=== PATIENT | female | born 1930 | race Caucasian/White ===

== ENCOUNTER 2018-04-20 15:58 | Inpatient (IN) ==
[2018-04-20] MEDS ORDERED: Naloxone 0.4 MG/ML INJ IVP PRN (18:41)
[2018-04-20] MEDS ORDERED: D5% in Water 1,000 ML IVC PRN (18:46)
[2018-04-20] MEDS ORDERED: Dextrose Gel 15 GM/37.5 ML TUBE PO PRN ×2 (18:46)
[2018-04-20] MEDS ORDERED: *HR* Dextrose 50 % in Water (Syg) 50 ML SYRINGE IVP PRN (18:46)
--- NOTE | 2018-04-20 18:55 | Internal Med History&Physical ---
Date of Encounter: 04/20/18 Time of Encounter: 18:10 Internal Medicine - H&P: HPI Chief complaint: Right neck swelling Admitted From: Home Plans for Post Hospital Care: Home History of present illness: Ms. Lima is a 87 year old female present to the emergency room of [facility] with right-sided neck swelling with tenderness and the skin redness. Past medical history is significant for diabetes, hypertension, arthritis on chronic 5 mg prednisone daily. Patient found right-sided neck swelling with pain. Patient has pain on swallowing. Denies difficult breathing. No drooling. Patient has right-sided neck skin redness spread to upper chest wall. Patient denies fever or chills. No nausea. Patient denies recent teeth infection or dental procedure. In [facility] emergency room, CT neck has been done with contrast, which shows inflammatory changes involving the right submandibular gland, no abscess. Patient was treated with Unasyn and transferred to our hospital for further management. Patient feels pain and the swelling has improved after treatment. Past Med Surg Social Fam HX - Past Medical History Medical history: arthritis, diabetes, hypertension - Past Surgical History Surgical History: cholecystectomy - Social History Smoking Status: Never smoker Alcohol use: none Drug use: none - Family History Mother History Unknown: Yes All Systems PM: A 10-system review of systems was performed and is negative for pertinent findings except as documented above in the HPI. - Constitutional Exam: Pt is AAO x 3, in NAD HEENT: NC/AT, PERRL Neck: Right submandibular swelling with tenderness. Skin redness spread to right neck and upper chest wall. Lungs: CTA b/l Heart: S1S2, RRR Abd: Soft, nontender, BS present Ext: ROM wnl, no pedal edema Neuro: No focal deficit - Assessment and plan (1) Submandibular gland infection Current Visit: Yes Status: Acute Assessment and plan: Patient has right-sided submadibular inflammation with leukocytosis (WBC 22.7K in [facility]), consider infection. No abscess identified by the CT scan - Continue IV Unasyn - Not meet sepsis criteria - Continue close monitoring to prevent airway obstruction. Keep patient in 2 N. continuous cardiac and pulse oximetry monitoring. - Keep nothing by mouth overnight, IV fluid for hydration. Reevaluate in a.m. (2) Diabetes mellitus Current Visit: Yes Status: Acute Assessment and plan: Place patient on insulin sliding scale coverage Qualifiers: Diabetes mellitus type: type 2 Diabetes mellitus ad terminal makeup operator insulin use: without ad terminal makeup operator use Diabetes mellitus complication status: without complication Qualified Code(s): E11.9 - Type 2 diabetes mellitus without complications (3) Hypertension Current Visit: Yes Status: Acute Assessment and plan: Hydralazine IV as needed. Resume home medication after diet resumed Qualifiers: Hypertension type: essential hypertension Qualified Code(s): I10 - Essential (primary) hypertension (4) Arthritis Current Visit: Yes Status: Acute (5) Chronic steroid use Current Visit: Yes Status: Acute Assessment and plan: Patient uses 5 mg prednisone daily for arthritis for about 6 months. Will give patient stress dose hydrocortisone IV to prevent adrenal crisis. (6) DVT prophylaxis Current Visit: Yes Status: Acute Assessment and plan: Subcutaneous heparin - Time Spent With Patient Total time spent is greater than 50% in coordination of care (as documented) at patient's floor/unit and/or counseling patient: 40 minutes Greater than 35 minutes
[2018-04-20] MEDS: Hydrocortisone Sodium Succ 100 MG/2 ML VIAL IVP SCH (19:39)
[2018-04-20 21:37] LABS: Basophils # 0.1 K/mcL (0.0-0.2); Basophils % 0.3 %; Eosinophils % 0.2 %; Hematocrit 38.5 % (35.3-44.9); Hemoglobin 13.4 g/dL (11.5-15.4); Immature Granulocytes % 0.6 % (0-4); Lymphocytes # 3.4 K/mcL (0.6-4.6); Lymphocytes % 14.4 %; Mean Corpuscular HGB Conc 34.8 g/dL (31.6-35.5); Mean Corpuscular Hemoglobin 31.5 pg (28.0-33.3); Mean Corpuscular Volume 90.6 fL (83.0-100.0); Mean Platelet Volume 10.4 fL (9.4-12.4); Monocytes # 1.3 K/mcL (0.0-1.3); Monocytes % 5.6 %; Neutrophils # 18.4 K/mcL (1.6-8.9); Platelet Count 312 K/mcL (140-400); Red Blood Count 4.25 M/mcL (3.82-4.97); Red Cell Distribution Width 12.8 % (11.5-14.5); Segmented Neutrophils % 78.9 %
[2018-04-20 21:51] LABS: BUN/Creatinine Ratio 15 (6-26); Blood Urea Nitrogen 9 mg/dL (8-23); Calcium 9.8 mg/dL (8.6-10.3); Carbon Dioxide 26 mEq/L (23-29); Chloride 92 mEq/L (98-107); Glucose 133 mg/dL (70-105); Osmolality,Calculated 277 (280-300); Potassium 2.6 mEq/L (3.5-5.1); Sodium 133 mEq/L (136-145); eGFR For Non-African Americans > 60 (> 60)
[2018-04-20] MEDS: 0.9 % Sodium Chloride 1,000 ML IVC SCH (21:53)
[2018-04-20] MEDS ORDERED: Potassium Chloride 20 MEQ, Lidocaine 1% 2 ML in D5% in Water 250 ML IVPB ONE (23:37)
[2018-04-20] MEDS: Ampicillin/Sulbactam 3,000 MG in 0.9 % Sodium Chloride Mini Bag 100 ML IVPB SCH (23:54)
[2018-04-21] MEDS ORDERED: *HR* Metoprolol 5 MG/5 ML VIAL IVP ONE ×3 (00:24→06:38)
[2018-04-21] MEDS: Hydrocortisone Sodium Succ 100 MG/2 ML VIAL IVP SCH ×3 (03:12→18:07)
[2018-04-21 04:10] LABS: Basophils # 0.1 K/mcL (0.0-0.2); Basophils % 0.2 %; Hematocrit 35.5 % (35.3-44.9); Hemoglobin 12.5 g/dL (11.5-15.4); Immature Granulocytes % 0.6 % (0-4); Lymphocytes # 2.8 K/mcL (0.6-4.6); Mean Corpuscular HGB Conc 35.2 g/dL (31.6-35.5); Mean Corpuscular Hemoglobin 31.5 pg (28.0-33.3); Mean Corpuscular Volume 89.4 fL (83.0-100.0); Mean Platelet Volume 10.2 fL (9.4-12.4); Monocytes # 1.2 K/mcL (0.0-1.3); Monocytes % 5.2 %; Neutrophils # 18.7 K/mcL (1.6-8.9); Platelet Count 340 K/mcL (140-400); Red Blood Count 3.97 M/mcL (3.82-4.97); Red Cell Distribution Width 12.8 % (11.5-14.5)
[2018-04-21 04:26] LABS: BUN/Creatinine Ratio 18 (6-26); Blood Urea Nitrogen 12 mg/dL (8-23); Calcium 9.2 mg/dL (8.6-10.3); Carbon Dioxide 25 mEq/L (23-29); Chloride 94 mEq/L (98-107); Glucose 156 mg/dL (70-105); Osmolality,Calculated 279 (280-300); Potassium 2.6 mEq/L (3.5-5.1); Sodium 133 mEq/L (136-145); eGFR For Non-African Americans > 60 (> 60)
[2018-04-21] MEDS: 0.9 % Sodium Chloride 1,000 ML IVC SCH ×2 (05:34→12:15)
[2018-04-21] MEDS: *HR* Heparin 5,000 UNIT/ML VIAL SQ SCH ×2 (05:34→18:06)
[2018-04-21] MEDS: Ampicillin/Sulbactam 3,000 MG in 0.9 % Sodium Chloride Mini Bag 100 ML IVPB SCH ×4 (05:34→23:39)
[2018-04-21] MEDS: Insulin LISPRO 300 UNITS/3 ML VIAL SQ SCH ×4 (05:35→18:14)
[2018-04-21] MEDS ORDERED: predniSONE 5 MG TABLET PO SCH (09:45)
[2018-04-21] MEDS ORDERED: *HR* Metoprolol 5 MG/5 ML VIAL IVP PRN (11:06)
[2018-04-21] MEDS: hydroCHLOROthiazide 25 MG TABLET PO SCH (12:15)
[2018-04-21] MEDS: amLODIPine 5 MG TABLET PO SCH (12:16)
[2018-04-21] MEDS: *HR* SitaGLIPtin 100 MG TABLET PO SCH (12:16)
[2018-04-21] MEDS: Lisinopril 20 MG TABLET PO SCH (12:16)
[2018-04-21] MEDS: Metoprolol 100 MG TABLET PO SCH ×2 (12:18→20:48)
[2018-04-21] MEDS: Potassium Chloride 40 MEQ, Lidocaine 1% 2 ML in D5% in Water 500 ML IVPB SCH ×2 (14:43→18:13)
[2018-04-21] MEDS: Latanoprost 2.5 ML BOTTLE BOTH EYES SCH (20:47)
[2018-04-22] MEDS: Insulin LISPRO 300 UNITS/3 ML VIAL SQ SCH ×5 (00:26→21:46)
[2018-04-22] MEDS: Ampicillin/Sulbactam 3,000 MG in 0.9 % Sodium Chloride Mini Bag 100 ML IVPB SCH ×4 (05:19→23:56)
[2018-04-22] MEDS: Hydrocortisone Sodium Succ 100 MG/2 ML VIAL IVP SCH ×3 (05:19→17:54)
[2018-04-22] MEDS: *HR* Heparin 5,000 UNIT/ML VIAL SQ SCH ×2 (05:19→17:59)
[2018-04-22] MEDS: Metoprolol 100 MG TABLET PO SCH ×2 (09:01→20:43)
[2018-04-22] MEDS: Lisinopril 20 MG TABLET PO SCH (09:01)
[2018-04-22] MEDS: amLODIPine 5 MG TABLET PO SCH (09:01)
[2018-04-22] MEDS: hydroCHLOROthiazide 25 MG TABLET PO SCH (09:03)
[2018-04-22] MEDS: *HR* SitaGLIPtin 100 MG TABLET PO SCH (09:03)
--- NOTE | 2018-04-22 09:06 | Internal Med Progress Note ---
Hospitalist Progress Note - Encounter Date of Encounter: 04/21/18 Time of Encounter: 11:00 - Subjective Interval History: Patient admitted with a sudden onset of left sided neck/face swelling and tenderness with cellulitis. Patient reporting of having difficulty swallowing this morning Patient without much improvement in leukocytosis on IV antibiotics - Exam Vitals: Temp Pulse Resp BP Pulse Ox 98.3 F 67 20 177/59 96 04/22/18 07:12 04/22/18 07:12 04/22/18 07:12 04/22/18 07:12 04/22/18 07:12 Exam: Gen.: Nonacute distress, alert and oriented 3 ENT: Left side of face/neck with swelling and firm to touch Respiratory: Lungs are clear to auscultation bilaterally without any wheezing rhonchi or rales Cardiovascular: Normal S1 and S2 regular rate rhythm no murmurs rubs or gallops Abdomen: Soft, nontender and nondistended with positive bowel sounds Extremities: No lower extremity edema Skin: Normal color - Assessment and Plan (1) Submandibular gland infection Current Visit: Yes Status: Acute Assessment and Plan: Patient has right-sided submadibular inflammation with leukocytosis (WBC 22.7K in [place]), No abscess identified by the CT scan Continue IV Unasyn; patient also on stress dose of hydrocortisone which should help with swelling as well Speech has been consulted for evaluation (2) Diabetes mellitus Current Visit: Yes Status: Acute Assessment and Plan: Continue coverage with sliding-scale insulin (3) Hypertension Current Visit: Yes Status: Acute Assessment and Plan: Hydralazine IV as needed. Will resume home medication after diet resumed (4) Arthritis Current Visit: Yes Status: Acute Assessment and Plan: Will discontinue patient's daily low-dose prednisone due to patient being on hydrocortisone as above (5) Chronic steroid use Current Visit: Yes Status: Acute Assessment and Plan: Patient uses 5 mg prednisone daily for arthritis for about 6 months. Patient currently on stress dose hydrocortisone IV to prevent adrenal crisis. (6) DVT prophylaxis Current Visit: Yes Status: Acute - Time Spent with Patient Total time spent is greater than 50% in coordination of care (as documented) at patient's floor/unit and/or counseling patient: Internal Medicine: Result - Labs CBC & Chem 7: 04/21/18 03:11 04/21/18 07:55 Consult Discharge Plan - Plan Referrals: Javier Story DO [Non-Partnered Physician] - (2) Diabetes mellitus Qualifiers: Diabetes mellitus type: type 2 Diabetes mellitus fdc insulin use: without lard refiner use Diabetes mellitus complication status: without complication Qualified Code(s): E11.9 - Type 2 diabetes mellitus without complications (3) Hypertension Qualifiers: Hypertension type: essential hypertension Qualified Code(s): I10 - Essential (primary) hypertension
--- NOTE | 2018-04-22 09:11 | Internal Med Progress Note ---
Hospitalist Progress Note - Encounter Date of Encounter: 04/22/18 Time of Encounter: 11:00 - Subjective Interval History: Patient admitted with a sudden onset of left sided neck/face swelling and tenderness with cellulitis. Patient's cellulitis and edema of left side of face/neck has decreased and she has passed swallowing test. - Exam Vitals: Temp Pulse Resp BP Pulse Ox 98.3 F 67 20 177/59 96 04/22/18 07:12 04/22/18 07:12 04/22/18 07:12 04/22/18 07:12 04/22/18 07:12 Exam: Gen.: Nonacute distress, alert and oriented 3 ENT: Left side of face/neck with swelling and firm to touch Respiratory: Lungs are clear to auscultation bilaterally without any wheezing rhonchi or rales Cardiovascular: Normal S1 and S2 regular rate rhythm no murmurs rubs or gallops Abdomen: Soft, nontender and nondistended with positive bowel sounds Extremities: No lower extremity edema Skin: Normal color - Assessment and Plan (1) Submandibular gland infection Current Visit: Yes Status: Acute Assessment and Plan: Patient has right-sided submadibular inflammation with leukocytosis (WBC 22.7K in [place]); white blood cell count was 22.8 yesterday No abscess identified by the CT scan Continue IV Unasyn; patient also on stress dose of hydrocortisone which should help with swelling as well Speech has been consulted for evaluation (2) Diabetes mellitus Current Visit: Yes Status: Acute Assessment and Plan: Continue coverage with sliding-scale insulin (3) Hypertension Current Visit: Yes Status: Acute Assessment and Plan: Hydralazine IV as needed. Will resume home medication after diet resumed (4) Arthritis Current Visit: Yes Status: Acute Assessment and Plan: Will discontinue patient's daily low-dose prednisone due to patient being on hydrocortisone as above (5) Chronic steroid use Current Visit: Yes Status: Acute Assessment and Plan: Patient uses 5 mg prednisone daily for arthritis for about 6 months. Patient currently on stress dose hydrocortisone IV to prevent adrenal crisis. DVT Prophylaxis: Subcutaneous heparin - Time Spent with Patient Total time spent is greater than 50% in coordination of care (as documented) at patient's floor/unit and/or counseling patient: Internal Medicine: Result - Labs CBC & Chem 7: 04/22/18 09:58 04/22/18 08:54 Consult Discharge Plan - Plan Referrals: Javier Story DO [Non-Partnered Physician] - (2) Diabetes mellitus Qualifiers: Diabetes mellitus type: type 2 Diabetes mellitus retirement insulin use: without terminal press operator use Diabetes mellitus complication status: without complication Qualified Code(s): E11.9 - Type 2 diabetes mellitus without complications (3) Hypertension Qualifiers: Hypertension type: essential hypertension Qualified Code(s): I10 - Essential (primary) hypertension
[2018-04-22 09:25] LABS: BUN/Creatinine Ratio 21 (6-26); Blood Urea Nitrogen 15 mg/dL (8-23); Calcium 9.1 mg/dL (8.6-10.3); Carbon Dioxide 20 mEq/L (23-29); Chloride 100 mEq/L (98-107); Glucose 174 mg/dL (70-105); Osmolality,Calculated 283 (280-300); Potassium 3.8 mEq/L (3.5-5.1); Sodium 134 mEq/L (136-145); eGFR For Non-African Americans > 60 (> 60)
[2018-04-22 10:24] LABS: Basophils % 0.2 %; Eosinophils % 0.1 %; Hematocrit 35.6 % (35.3-44.9); Hemoglobin 12.3 g/dL (11.5-15.4); Immature Granulocytes % 0.6 % (0-4); Lymphocytes # 2.1 K/mcL (0.6-4.6); Lymphocytes % 12.7 %; Mean Corpuscular HGB Conc 34.6 g/dL (31.6-35.5); Mean Corpuscular Hemoglobin 31.7 pg (28.0-33.3); Mean Corpuscular Volume 91.8 fL (83.0-100.0); Mean Platelet Volume 10.3 fL (9.4-12.4); Monocytes # 0.6 K/mcL (0.0-1.3); Monocytes % 3.6 %; Neutrophils # 13.4 K/mcL (1.6-8.9); Platelet Count 331 K/mcL (140-400); Red Blood Count 3.88 M/mcL (3.82-4.97); Red Cell Distribution Width 13.2 % (11.5-14.5); Segmented Neutrophils % 82.8 %
[2018-04-22] MEDS: 0.9 % Sodium Chloride 1,000 ML IVC SCH (19:11)
[2018-04-22 19:44] LABS: Basophils % 0.1 %; Eosinophils % 0.1 %; Hematocrit 34.7 % (35.3-44.9); Immature Granulocytes % 0.7 % (0-4); Lymphocytes # 1.5 K/mcL (0.6-4.6); Mean Corpuscular HGB Conc 34.6 g/dL (31.6-35.5); Mean Corpuscular Hemoglobin 31.6 pg (28.0-33.3); Mean Corpuscular Volume 91.3 fL (83.0-100.0); Mean Platelet Volume 10.1 fL (9.4-12.4); Monocytes # 0.5 K/mcL (0.0-1.3); Monocytes % 3.3 %; Neutrophils # 12.9 K/mcL (1.6-8.9); Platelet Count 340 K/mcL (140-400); Red Cell Distribution Width 13.2 % (11.5-14.5); Segmented Neutrophils % 85.8 %
[2018-04-22 20:00] LABS: BUN/Creatinine Ratio 24 (6-26); Blood Urea Nitrogen 23 mg/dL (8-23); Calcium 8.8 mg/dL (8.6-10.3); Carbon Dioxide 25 mEq/L (23-29); Chloride 100 mEq/L (98-107); Glucose 202 mg/dL (70-105); Osmolality,Calculated 287 (280-300); Potassium 3.5 mEq/L (3.5-5.1); Sodium 134 mEq/L (136-145); eGFR For Non-African Americans 55 (> 60)
[2018-04-22] MEDS: Latanoprost 2.5 ML BOTTLE BOTH EYES SCH (20:45)
[2018-04-23] MEDS: Hydrocortisone Sodium Succ 100 MG/2 ML VIAL IVP SCH ×3 (02:07→17:14)
[2018-04-23] MEDS: Ampicillin/Sulbactam 3,000 MG in 0.9 % Sodium Chloride Mini Bag 100 ML IVPB SCH ×4 (05:33→23:54)
[2018-04-23] MEDS: *HR* Heparin 5,000 UNIT/ML VIAL SQ SCH ×2 (05:34→16:59)
[2018-04-23] MEDS: Insulin LISPRO 300 UNITS/3 ML VIAL SQ SCH ×3 (08:37→17:10)
[2018-04-23] MEDS: *HR* SitaGLIPtin 100 MG TABLET PO SCH (08:38)
[2018-04-23] MEDS: Metoprolol 100 MG TABLET PO SCH ×2 (08:39→20:13)
[2018-04-23] MEDS: hydroCHLOROthiazide 25 MG TABLET PO SCH (08:39)
[2018-04-23] MEDS: Lisinopril 20 MG TABLET PO SCH (08:39)
[2018-04-23] MEDS: amLODIPine 5 MG TABLET PO SCH (08:39)
--- NOTE | 2018-04-23 08:53 | Internal Med Progress Note ---
Hospitalist Progress Note - Encounter Date of Encounter: 04/23/18 Time of Encounter: 11:00 - Subjective Interval History: Patient admitted with a sudden onset of left sided neck/face swelling and tenderness with cellulitis. Patient's cellulitis and edema of left side of face/neck has decreased and she has passed swallowing test. Leukocytosis improving and patient afebrile She has tolerated by mouth well over the last 24 hours - Exam Vitals: Temp Pulse Resp BP Pulse Ox 97.8 F 80 18 160/62 97 04/23/18 07:25 04/23/18 07:25 04/23/18 07:25 04/23/18 07:25 04/23/18 07:25 Exam: Gen.: Nonacute distress, alert and oriented 3 ENT: Left side of face/neck with swelling and firm to touch Respiratory: Lungs are clear to auscultation bilaterally without any wheezing rhonchi or rales Cardiovascular: Normal S1 and S2 regular rate rhythm no murmurs rubs or gallops Abdomen: Soft, nontender and nondistended with positive bowel sounds Extremities: No lower extremity edema Skin: Normal color - Assessment and Plan (1) Submandibular gland infection Current Visit: Yes Status: Acute Assessment and Plan: Patient's cellulitis and edema of left side of face/neck has decreased and she has passed swallowing test. Leukocytosis improving and patient afebrile; no abscess identified by the CT scan She has tolerated by mouth well over the last 24 hours Continue day 3 of IV Unasyn; patient also on stress dose of hydrocortisone which should help with swelling as well (2) Diabetes mellitus Current Visit: Yes Status: Acute Assessment and Plan: Will restart patient on her home dose of Januvia Continue coverage with sliding-scale insulin (3) Hypertension Current Visit: Yes Status: Acute Assessment and Plan: Blood pressures have been persistently elevated so we will increase home dose of amlodipine from 5 to 10 mg daily Continue patient's current home dose of metoprolol titrate 100 mg twice daily and lisinopril 40 mg daily. Continue to monitor (4) Arthritis Current Visit: Yes Status: Acute Assessment and Plan: Will discontinue patient's daily low-dose prednisone due to patient being on hydrocortisone as above (5) Chronic steroid use Current Visit: Yes Status: Acute Assessment and Plan: Patient uses 5 mg prednisone daily for arthritis for about 6 months. Patient currently on stress dose hydrocortisone IV to prevent adrenal crisis. DVT Prophylaxis: Subcutaneous heparin - Time Spent with Patient Total time spent is greater than 50% in coordination of care (as documented) at patient's floor/unit and/or counseling patient: Internal Medicine: Result - Labs CBC & Chem 7: 04/23/18 11:15 04/23/18 11:15 Labs: Short CBC 04/22/18 04/22/18 Range/Units 09:58 19:30 WBC 16.2 H 15.1 H (4.3-11.1) K/mcL Hgb 12.3 12.0 (11.5-15.4) g/dL Hct 35.6 34.7 L (35.3-44.9) % Plt Count 331 340 (140-400) K/mcL Neutrophils # 13.4 H 12.9 H (1.6-8.9) K/mcL BMP 04/22/18 04/22/18 08:54 19:30 Sodium 134 L 134 L Potassium 3.8 3.5 Chloride 100 100 Carbon Dioxide 20 L 25 BUN 15 23 Creatinine 0.70 0.96 Glucose 174 H 202 H Calcium 9.1 8.8 Consult Discharge Plan - Plan Referrals: Javier Story DO [Non-Partnered Physician] - ___ (2) Diabetes mellitus Qualifiers: Diabetes mellitus type: type 2 Diabetes mellitus intermodal owner operator truck driver insulin use: without intermodal owner operator truck driver use Diabetes mellitus complication status: without complication Qualified Code(s): E11.9 - Type 2 diabetes mellitus without complications (3) Hypertension Qualifiers: Hypertension type: essential hypertension Qualified Code(s): I10 - Essential (primary) hypertension
[2018-04-23 11:38] LABS: Basophils % 0.2 %; Eosinophils % 0.2 %; Hematocrit 35.5 % (35.3-44.9); Hemoglobin 12.5 g/dL (11.5-15.4); Lymphocytes % 23.8 %; Mean Corpuscular HGB Conc 35.2 g/dL (31.6-35.5); Mean Corpuscular Hemoglobin 31.8 pg (28.0-33.3); Mean Corpuscular Volume 90.3 fL (83.0-100.0); Mean Platelet Volume 10.8 fL (9.4-12.4); Monocytes % 4.5 %; Neutrophils # 11.7 K/mcL (1.6-8.9); Platelet Count 311 K/mcL (140-400); Red Blood Count 3.93 M/mcL (3.82-4.97); Red Cell Distribution Width 12.9 % (11.5-14.5); Segmented Neutrophils % 70.3 %
[2018-04-23 11:45] LABS: BUN/Creatinine Ratio 26 (6-26); Blood Urea Nitrogen 19 mg/dL (8-23); Calcium 8.9 mg/dL (8.6-10.3); Carbon Dioxide 24 mEq/L (23-29); Chloride 100 mEq/L (98-107); Glucose 216 mg/dL (70-105); Osmolality,Calculated 291 (280-300); Potassium 3.2 mEq/L (3.5-5.1); Sodium 136 mEq/L (136-145); eGFR For Non-African Americans > 60 (> 60)
[2018-04-23] MEDS ORDERED: amLODIPine 5 MG TABLET PO ONE (12:05)
[2018-04-23 12:13] LABS: Monocytes # 0.8 K/mcL (0.0-1.3)
[2018-04-23] MEDS: Latanoprost 2.5 ML BOTTLE BOTH EYES SCH (20:14)
[2018-04-23] MEDS ORDERED: Insulin LISPRO 300 UNITS/3 ML VIAL SQ SCH (21:00)
[2018-04-24] MEDS: Hydrocortisone Sodium Succ 100 MG/2 ML VIAL IVP SCH (04:05)
[2018-04-24] MEDS: *HR* Heparin 5,000 UNIT/ML VIAL SQ SCH (05:20)
[2018-04-24] MEDS: Ampicillin/Sulbactam 3,000 MG in 0.9 % Sodium Chloride Mini Bag 100 ML IVPB SCH (05:20)
[2018-04-24] MEDS ORDERED: *HR* SitaGLIPtin 25 MG TABLET PO SCH (08:00)
[2018-04-24] MEDS: Lisinopril 20 MG TABLET PO SCH (08:26)
[2018-04-24] MEDS: hydroCHLOROthiazide 25 MG TABLET PO SCH (08:26)
[2018-04-24] MEDS: Metoprolol 100 MG TABLET PO SCH (08:26)
[2018-04-24] MEDS: Insulin LISPRO 300 UNITS/3 ML VIAL SQ SCH ×2 (08:26→12:04)
[2018-04-24 08:57] LABS: Basophils # 0.1 K/mcL (0.0-0.2); Basophils % 0.3 %; Eosinophils # 0.1 K/mcL (0.0-0.6); Eosinophils % 0.4 %; Hematocrit 35.2 % (35.3-44.9); Hemoglobin 12.4 g/dL (11.5-15.4); Immature Granulocytes % 1.7 % (0-4); Lymphocytes # 3.4 K/mcL (0.6-4.6); Mean Corpuscular HGB Conc 35.2 g/dL (31.6-35.5); Mean Corpuscular Hemoglobin 31.8 pg (28.0-33.3); Mean Corpuscular Volume 90.3 fL (83.0-100.0); Mean Platelet Volume 10.2 fL (9.4-12.4); Monocytes # 0.7 K/mcL (0.0-1.3); Monocytes % 4.5 %; Neutrophils # 11.5 K/mcL (1.6-8.9); Platelet Count 360 K/mcL (140-400); Segmented Neutrophils % 72.1 %
[2018-04-24] MEDS ORDERED: amLODIPine 5 MG TABLET PO SCH (09:00)
[2018-04-24 09:11] LABS: BUN/Creatinine Ratio 24 (6-26); Blood Urea Nitrogen 16 mg/dL (8-23); Calcium 8.9 mg/dL (8.6-10.3); Carbon Dioxide 26 mEq/L (23-29); Chloride 99 mEq/L (98-107); Glucose 161 mg/dL (70-105); Osmolality,Calculated 285 (280-300); Potassium 3.2 mEq/L (3.5-5.1); Sodium 135 mEq/L (136-145); eGFR For Non-African Americans > 60 (> 60)
[2018-04-24] MEDS ORDERED: predniSONE 20 MG TABLET PO SCH (11:15)
[2018-04-24] MEDS ORDERED: Amoxicillin/Clavulanate 400 MG/5 ML UDC PO SCH (11:30)
[2018-04-24] MEDS ORDERED: Potassium Chloride 40 MEQ, Lidocaine 1% 2 ML in D5% in Water 500 ML IVPB ONE (11:31)
[2018-04-24 11:50] VITALS: BP 151/57
--- NOTE | 2018-04-24 13:56 | Discharge Summary ---
- NOTES TO OUTPATIENT PROVIDER Notes to Outpatient Provider: Follow up with primary care provider for management of rheumatoid arthritis on prednisone Orders not resulted at time of discharge: Pending orders 04/20/18 20:59 Culture,Blood [BC] Stat Date of Encounter: 04/24/18 Time of Encounter: 11:00 - Discharge Diagnosis (1) Submandibular gland infection Priority: Primary Status: Acute (2) Diabetes mellitus Priority: Secondary Status: Acute Qualifiers: Diabetes mellitus type: type 2 Diabetes mellitus terminal clerk insulin use: without terminal clerk use Diabetes mellitus complication status: without complication Qualified Code(s): E11.9 - Type 2 diabetes mellitus without complications (3) Hypertension Priority: Secondary Status: Acute Qualifiers: Hypertension type: essential hypertension Qualified Code(s): I10 - Essential (primary) hypertension (4) Arthritis Priority: Secondary Status: Acute (5) Chronic steroid use Priority: Secondary Status: Acute Hospital course: Patient is a 7-year-old female with past medical history significant for rheumatoid arthritis on chronic prednisone who presented to the ER from [facility] with right-sided neck swelling/tenderness and erythema. CT of the neck with contrast showed rheumatoid changes involving the right submandibular gland without abscess. Patient was treated with Unasyn and transferred to [facility] for further management. During patients hospital stay her leukocytosis improved as did her swelling and cellulitis. She was able to swallow by mouth without difficulties. Patient will be discharged to complete Augmentin and was discharged on short steroid taper. - Time Spent with Patient Total time spent providing and/or coordinating discharge services: Less than 30 minutes - Discharge Medications Prescriptions: Amoxicillin/Clavulanate [AUGMENTIN Susp] 500 mg PO BID 2 Days #4 udc Potassium Chloride Elixir [Potassium Chloride] 20 meq PO DAILY #1 bottle predniSONE [PredniSONE] 10 mg PO DAILY 3 Days #3 tablet predniSONE [PredniSONE] 20 mg PO DAILY 3 Days #3 tablet predniSONE [PredniSONE] 5 mg PO DAILY #30 tablet NS Home Medications: Amlodipine Besylate 5 mg PO DAILY 04/21/18 [History] Citalopram Hydrobromide [Citalopram HBr] 20 mg PO DAILY 04/21/18 [History] DULoxetine [Cymbalta] 30 mg PO DAILY 04/21/18 [History] Diflunisal 500 mg PO BID PRN 04/21/18 [History] Latanoprost [Xalatan] 1 drop BOTH EYES HS 04/21/18 [History] Lisinopril [Zestril] 40 mg PO DAILY 04/21/18 [History] Metoprolol Tartrate 100 mg PO BID 04/21/18 [History] Nabumetone [Relafen] 500 mg PO DAILY PRN 04/21/18 [History] Oxybutynin Chloride [Ditropan Xl] 10 mg PO DAILY 04/21/18 [History] SitaGLIPtin [Januvia] 100 mg PO DAILY 04/21/18 [History] glipiZIDE [Glipizide] 10 mg PO DAILY 04/21/18 [History] hydroCHLOROthiazide [Hydrochlorothiazide] 50 mg PO DAILY 04/21/18 [History] Amoxicillin/Clavulanate [AUGMENTIN Susp] 500 mg PO BID 2 Days #4 udc 04/24/18 [Rx] Potassium Chloride Elixir [Potassium Chloride] 20 meq PO DAILY #1 bottle 04/24/18 [Rx] predniSONE [PredniSONE] 5 mg PO DAILY #30 tablet NS 04/24/18 [Rx] predniSONE [PredniSONE] 10 mg PO DAILY 3 Days #3 tablet 04/24/18 [Rx] predniSONE [PredniSONE] 20 mg PO DAILY 3 Days #3 tablet 04/24/18 [Rx] Allergies/Adverse Reactions: Allergy/AdvReac Type Severity Reaction Status Date / Time No Known Allergies Allergy Verified 04/20/18 19:25 Date of admission: 04/20/18 17:39 Primary care physician: PCP NONE Consults: 04/21/18 08:45 Consult to Speech Therapy [CONS] Routine Comment: Evaluate, develop and implement POC Reason for Consult: Difficulty swallowing related to mass on neck Call Completed: Yes 04/21/18 11:04 Consult to Occupational Therapy [CONS] Routine Comment: Evaluate, develop and implement POC Reason for Consult: discharge needs- weakness Does patient have active BEDREST order?: No Is patient medically & hemodynamically stable?: Yes Consult to Physical Therapy [CONS] Routine Comment: Evaluate, develop and implement POC Reason for Consult: discharge needs- weakness Does patient have active BEDREST order?: No Is patient medically & hemodynamically stable?: Yes - Constitutional Vitals: Temp Pulse Resp BP Pulse Ox 98.3 F 58 18 151/57 97 04/24/18 11:46 04/24/18 11:46 04/24/18 11:46 04/24/18 11:46 04/24/18 11:46 Exam: Gen.: Nonacute distress, alert and oriented 3 Skin: Normal color - Patient Status Disposition: Home, Self-Care Condition: Good - Discharge Instructions Instructions: Cellulitis (GEN), Chronic Hypertension (DC) Follow Up With: Javier Story DO [Non-Partnered Physician] - 05/02/18 10:00 am
[2018-04-27] MEDS ORDERED: predniSONE 10 MG TABLET PO SCH (09:00)
[2018-04-30] MEDS ORDERED: predniSONE 5 MG TABLET PO SCH (09:00)
== END 2018-04-24 17:15 | disposition home or self-care (01) | DRG 155 ==
LOC: ICNU 17:39 → SUATTDRO 17:39 → 2NNU 18:17
PROVIDERS: ADMIT Internal Medicine; ATTEND Hospitalist